=== PATIENT | male | born 1960 | race Caucasian/White ===

== ENCOUNTER 2016-06-02 23:28 | Emergency (ER) | payer OTHER ==
[~2016-06-02 23:28] MED LIST: ADULT TUSS100 MG/5 M PO; AZITHROMYCIN250 MG PO; DICLOFENAC PO; FLEXERIL10 MG PO; POTASSIUM CHLO20 ME1 PO
== END 2016-06-02 23:40 | disposition home or self-care (01) ==
LOC: SED 23:28
DX: S16.1XXA Strain of muscle, fascia and tendon at neck level, initial encounter (principal); V43.52XA Car driver injured in collision with other type car in traffic accident, initial encounter; Y92.410 Unspecified street and highway as the place of occurrence of the external cause
CPT/HCPCS: 99283

== ENCOUNTER 2016-09-25 23:10 | Emergency (ER) | payer OTHER ==
[2016-09-25] MEDS ORDERED: NASACORT10.8 ML (23:20)
[2016-09-25] MEDS ORDERED: MOTRIN PO (23:20)
[2016-09-25] MEDS ORDERED: MUSCLE RELAXER (23:21)
[2016-09-26] MEDS ORDERED: AMOXICILLIN500 M1 PO (00:24)
[2016-09-26] MEDS ORDERED: HYDROCODON-ACE1 EAC7 PO (00:25)
== END 2016-09-26 00:35 | disposition home or self-care (01) ==
LOC: SED 23:10
DX: J32.9 Chronic sinusitis, unspecified (principal); Z79.899 Other long term (current) drug therapy
CPT/HCPCS: 99284

== ENCOUNTER → 2016-10-26 | Outpatient (CLI) | payer OTHER ==
[~2016-10-26] MED LIST changes: +AMOXICILLIN500 M1 PO; +HYDROCODON-ACE1 EAC7 PO; +MOTRIN PO; +MUSCLE RELAXER; +NASACORT10.8 ML
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
== END | disposition home or self-care (01) ==
LOC: CMRI 07:26
DX: R51 Headache (principal); G93.9 Disorder of brain, unspecified
CPT/HCPCS: 70551